=== PATIENT | male | born 1975 | race Caucasian/White ===

== ENCOUNTER 2023-11-23 16:33 | Emergency (ER) | payer OTHER ==
--- NOTE | 2023-11-23 16:55 | ED ---
ENT HPI - General Chief complaint: ENT Stated complaint: Left ear infection Time Seen by Provider: 11/23/23 16:50 Source: patient, RN notes reviewed Mode of arrival: ambulatory Limitations: no limitations - History of Present Illness Initial comments: This is a 48-year-old male presents emergency department chief complaint of left ear swelling, drainage, and pain. Patient states that on Tuesday he was taken off a sweater where he caused a small tear where his earlobe attaches to his skin. States that over the weekend the area became more painful and swollen. Patient went to urgent care yesterday here he was prescribed Augmentin, ibuprofen, topical mupirocin. Dates he has taken 1 dose of the medication. He states that the area began draining today in addition to complaints of muffled hearing. He denies headaches, trismus, runny nose, congestion, sore throat, headaches. - Related Data Previous Rx's Medication Instructions Recorded Ciprofloxacin HCl [Cipro] 500 mg PO Q12HR #20 tablet 11/23/23 Allergies Allergy/AdvReac Type Severity Reaction Status Date / Time No Known Allergies Allergy Verified 11/23/23 16:43 Review of Systems ROS Statement: Those systems with pertinent positive or pertinent negative responses have been documented in the HPI. ROS Other: All systems not noted in ROS Statement are negative. Past Medical History Past Medical History: Hypertension History of Any Multi-Drug Resistant Organisms: None Reported Past Surgical History: Tonsillectomy Past Psychological History: No Psychological Hx Reported Smoking Status: Never smoker Past Alcohol Use History: Daily Past Drug Use History: None Reported General Exam Limitations: no limitations General appearance: alert, in no apparent distress Head exam: Present: atraumatic, normocephalic, normal inspection, other (Left- sided preauricular edema and erythema no signs of purulence or drainage) Eye exam: Present: normal appearance, PERRL, EOMI. Absent: scleral icterus, conjunctival injection, periorbital swelling Expanded Ear exam: Present: other (External auricular edema and erythema, noted blister in the external canal. There is tenderness with palpation. No mastoid tenderness noted. Internal flexion left TM intact. Canal edematous and erythematous.). Absent: normal external inspection Neck exam: Present: normal inspection. Absent: tenderness, meningismus, lymphadenopathy Respiratory exam: Present: normal lung sounds bilaterally. Absent: respiratory distress, wheezes, rales, rhonchi, stridor Cardiovascular Exam: Present: regular rate, normal rhythm, normal heart sounds. Absent: systolic murmur, diastolic murmur, rubs, gallop, clicks GI/Abdominal exam: Present: soft, normal bowel sounds. Absent: distended, tenderness, guarding, rebound, rigid Extremities exam: Present: normal inspection, full ROM, normal capillary refill. Absent: tenderness, pedal edema, joint swelling, calf tenderness Back exam: Present: normal inspection Neurological exam: Present: alert, oriented X3, CN II-XII intact Psychiatric exam: Present: normal affect, normal mood Skin exam: Present: warm, dry, intact, normal color, other (See above for description of edema and erythema of the right ear.). Absent: rash Course Vital Signs 11/23/23 11/23/23 16:38 18:54 Temperature 98.2 F 98 F Pulse Rate 71 72 Respiratory 18 18 Rate Blood Pressure 139/90 138/93 O2 Sat by Pulse 100 98 Oximetry Medical Decision Making - Medical Decision Making Was pt. sent in by a medical professional or institution (, PA, TOOL AND DIE MAKER APPRENTICE, urgent care, hospital, or penitentiary...) When possible be specific @ -No Did you speak to anyone other than the patient for history (EMS, parent, family, police, friend...)? What history was obtained from this source @ -No Did you review nursing and triage notes (agree or disagree)? Why? @ -I reviewed and agree with nursing and triage notes Were old charts reviewed (outside hosp., previous admission, EMS record, old EKG, old radiological studies, urgent care reports/EKG's, penitentiary records)? Report findings @ -No old charts were reviewed Differential Diagnosis (chest pain, altered mental status, abdominal pain women, abdominal pain men, vaginal bleeding, weakness, fever, dyspnea, syncope, headache, dizziness, GI bleed, back pain, seizure, CVA, palpatations, mental health, musculoskeletal)? @ -External ear infection, cellulitis, soft tissue infection, this list is not all inclusive. EKG interpreted by me (3pts min.). @ -None X-rays interpreted by me (1pt min.). @ -None done CT interpreted by me (1pt min.). @ -None done U/S interpreted by me (1pt. min.). @ -None done What testing was considered but not performed or refused? (CT, X-rays, U/S, labs)? Why? @ -ET imaging and labs were considered but deferred at this time. Patient is not addressing signs concerning for sepsis. He is afebrile, nontachycardic. Additionally is also denying nausea or episodes of fevers or vomiting at home. Is in agreement with deferring lab work and imaging. What meds were considered but not given or refused? Why? @ -None Did you discuss the management of the patient with other professionals (professionals i.e. , PA, TOOL AND DIE MAKER APPRENTICE, lab, RT, psych nurse, social work administrator, vehicle assembler, teacher, traffic officer, case assembler)? Give summary @ -No Was smoking cessation discussed for >3mins.? @ -No Was critical care preformed (if so, how long)? @ -No Were there social determinants of health that impacted care today? How? (Homelessness, low income, unemployed, alcoholism, drug addiction, transportation, low edu. Level, literacy, decrease access to med. care, assisted, rehab)? @ -No Was there de-escalation of care discussed even if they declined (Discuss DNR or withdrawal of care, Hospice)? DNR status @ -No What co-morbidities impacted this encounter? (DM, HTN, Smoking, COPD, CAD, Cancer, CVA, ARF, Chemo, Hep., AIDS, mental health diagnosis, sleep apnea, morbid obesity)? @ -None Was patient admitted / discharged? Hospital course, mention meds given and route, prescriptions, significant lab abnormalities, going to OR and other pertinent info. @ -48-year-old male with pain to his left ear. On examination patient's e xternal left ear is edematous, erythematous. There is also a noted area of blistering in the anterior ear. Patient denies mastoid tenderness or pain with jaw movement. Case discussed with Dr. Parra. Recommend the patient continues on oral course of Augmentin and topical mupirocin. Additionally, he will be started on ciprofloxacin to cover for further antibiotic coverage. Strict return parameters discussed with the patient. Patient stable for discharge at this time. All questions answered at bedside. Undiagnosed new problem with uncertain prognosis? @ -No Drug Therapy requiring intensive monitoring for toxicity (Heparin, Nitro, Insulin, Cardizem)? @ -No Were any procedures done? @ -No Diagnosis/symptom? @ -Cellulitis Acute, or Chronic, or Acute on Chronic? @ -Acute Uncomplicated (without systemic symptoms) or Complicated (systemic symptoms)? @ -Complicated Side effects of treatment? @ -No Exacerbation, Progression, or Severe Exacerbation? @ -No Poses a threat to life or bodily function? How? (Chest pain, [place], [place], pneumonia, PE, COPD, DKA, ARF, appy, cholecystitis, CVA, Diverticulitis, Homicidal, Suicidal, threat to staff... and all critical care pts) @ -No Disposition Clinical Impression: Cellulitis of ear, Acute infection of external ear Narrative: Please return to the Emergency Department if symptoms worsen or any other concerns. Complete full course of antibiotics as prescribed. Follow-up with your primary care provider in the next 2 days for reevaluation. Disposition: HOME SELF-CARE Condition: Good Instructions (If sedation given, give patient instructions): Cellulitis (ED) Prescriptions: Ciprofloxacin HCl [Cipro] 500 mg PO Q12HR #20 tablet Is patient prescribed a controlled substance at d/c from ED?: No Referrals: Nonstaff,Physician [REFERRING] - 1-2 days Time of Disposition: 18:42
[2023-11-23 17:01] VITALS: RESP 18
[2023-11-23 19:18] VITALS: BP 138/93; PULSE 72; TEMP 98
== END 2023-11-23 18:56 | disposition home or self-care (01) ==
LOC: EC 16:33
DX: H60.12 Cellulitis of left external ear (principal)
CPT/HCPCS: 99282